=== PATIENT | female | born 1950 | race Caucasian/White ===

== ENCOUNTER 2020-08-16 08:26 | Observation (INO) ==
[~2020-08-16 08:26] MED LIST: Buffered Lidocaine 1% SYRIN 1 ml INTRADERM ONE; Famotidine IV 10 MG/ML 2 ml VIAL (20 mg) IV ONE; Lactated Ringers 1000 ml BAG 1,000 ML IV SCH; Sodium Citrate/Citric Acid LIQ 15 ML UDC PO ONE
[2020-08-16] MEDS ORDERED: Lidocaine 2% PF 5 ML VIAL ONE (09:06)
[2020-08-16] MEDS ORDERED: Propofol 10 MG/ML 20 ML BTL ONE (09:06)
[2020-08-16] MEDS ORDERED: Midazolam 2 mg/2 ml VIAL 1 mg/ml 2 ml VIAL (2 mg) ONE (09:09)
[2020-08-16] MEDS ORDERED: Sodium Citrate/Citric Acid LIQ 15 ML UDC ONE (09:25)
[2020-08-16] MEDS ORDERED: ceFAZolin 2 GM PREMIX 2 GM/50 ML BAG ONE (09:25)
[2020-08-16] MEDS ORDERED: Buffered Lidocaine 1% SYRIN 1 ml INTRADERM ONE (09:26)
[2020-08-16] MEDS ORDERED: Famotidine IV 10 MG/ML 2 ml VIAL (20 mg) ONE (09:26)
[2020-08-16] MEDS ORDERED: Lidocaine 1% MPF 5 ML VIAL ONE (09:52)
[2020-08-16] MEDS ORDERED: ROPIVACAINE 5 MG/ML 30 ML BTL (0.5%) ONE (09:52)
[2020-08-16] MEDS ORDERED: Dexamethasone IV 4 MG/ML VIAL 1 ml VIAL ONE ×2 (09:53→09:54)
[2020-08-16] MEDS ORDERED: Ondansetron 4 mg VIAL 2 MG/ML 2 ml VIAL ONE (09:54)
[2020-08-16] MEDS ORDERED: Midazolam 5 mg/5 ml VIAL 1 mg/ml 5 ml VIAL (5 mg) ONE (09:58)
[2020-08-16] MEDS ORDERED: Bupivacaine 0.5% SDV PF 30ML VIAL ONE (10:56)
[2020-08-16] MEDS ORDERED: EPHEDrine (Pressors) 50 MG/ML VIAL ONE (11:19)
[2020-08-16] MEDS ORDERED: Naloxone 0.4 mg VIAL 0.4 mg/ml 1 ml VIAL IV PRN (11:32)
[2020-08-16] MEDS ORDERED: HYDROmorphone 1 MG/1 ML SYRINGE IV PRN (11:32)
[2020-08-16] MEDS ORDERED: fentaNYL 100 mcg/2 ml 50 MCG/ML VIAL IV PRN (11:32)
[2020-08-16] MEDS ORDERED: Ondansetron 4 mg VIAL 2 MG/ML 2 ml VIAL IV PRN ×2 (11:32→11:47)
[2020-08-16] MEDS ORDERED: Phenylephrine 40 mcg/mL 10mL (400mcg) SYRINGE ONE (11:36)
[2020-08-16] MEDS ORDERED: Ondansetron ODT 4 mg TAB 4 MG TAB PO PRN (11:47)
[2020-08-16] MEDS ORDERED: Lactulose 30 ml UDC PO PRN (11:47)
[2020-08-16] MEDS ORDERED: Magnesium Hydroxide LIQ 30 ML UDC PO PRN (11:47)
[2020-08-16] MEDS ORDERED: diPHENhydraMINE IV 50 MG/ML 1 ml VIAL (BENADRYL) IV PRN (11:47)
[2020-08-16] MEDS ORDERED: diPHENhydraMINE 25 mg TAB PO PRN (11:47)
[2020-08-16] MEDS ORDERED: Morphine 2 MG/ML SYRINGE IV PRN (11:47)
[2020-08-16] MEDS ORDERED: oxyCODONE/Acetamin 5/325 mg TAB PO PRN (11:47)
[2020-08-16] MEDS: Lactated Ringers 1000 ml BAG 1,000 ML IV SCH (14:41)
[2020-08-16] MEDS: ceFAZolin 1 GM ADVAN 1 GM in NS 0.9% 50 ML 50 ML IVPB SCH (19:32)
[2020-08-16] MEDS: Magnesium Hydroxide LIQ 30 ML UDC PO SCH (21:04)
[2020-08-17] MEDS: Lactated Ringers 1000 ml BAG 1,000 ML IV SCH (02:20)
[2020-08-17] MEDS: ceFAZolin 1 GM ADVAN 1 GM in NS 0.9% 50 ML 50 ML IVPB SCH ×2 (03:46→11:00)
[2020-08-17 06:37] LABS: BUN/Creatinine Ratio 24.3 (8-20); Calcium 8.9 mg/dL (8.6-10.3); EGFR African American 100.4 (>60); Potassium 4.4 mmol/L (3.5-5.0)
[2020-08-17 06:42] LABS: Hematocrit 36 % (35-47); Hemoglobin 11.7 g/dL (12.0-16.0); Mean Platelet Volume 10.1 fL (7.4-10.4); Platelet Count 219 10^3/uL (150-450)
[2020-08-17] MEDS: Magnesium Hydroxide LIQ 30 ML UDC PO SCH (08:53)
[2020-08-17] MEDS ORDERED: Vitamin THERAPEUTIC TAB PO SCH (09:00)
[2020-08-17 12:36] VITALS: BP 113/49
== END 2020-08-17 13:33 | disposition home or self-care (01) ==
LOC: SSU 08:26 → OR 08:26
PROVIDERS: ADMIT Orthopaedic Surgery Adult Reconstructive Orthopaedic Surgery; ATTEND Orthopaedic Surgery Adult Reconstructive Orthopaedic Surgery

== ENCOUNTER 2022-06-30 08:28 | Observation (INO) ==
[~2022-06-30 08:28] MED LIST changes: +Dexamethasone IV 4 MG/ML VIAL 1 ml VIAL IV SLOW PU ONE; -Sodium Citrate/Citric Acid LIQ 15 ML UDC PO ONE; +ceFAZolin 2 GM in NS PREMIX 2 GM/100 ML BAG IVPB ONE
[2022-06-30] MEDS ORDERED: Dexamethasone IV 4 MG/ML VIAL 1 ml VIAL ONE (09:12)
[2022-06-30] MEDS ORDERED: Famotidine IV 10 MG/ML 2 ml VIAL (20 mg) ONE (09:13)
[2022-06-30] MEDS ORDERED: Midazolam 2 mg/2 ml VIAL 1 mg/ml 2 ml VIAL (2 mg) ONE ×2 (09:27→09:56)
[2022-06-30] MEDS ORDERED: Propofol 10 MG/ML 20 ML BTL ONE (09:27)
[2022-06-30] MEDS ORDERED: Lidocaine 2% PF 5 ML VIAL ONE (09:27)
[2022-06-30] MEDS ORDERED: fentaNYL 100 mcg/2 ml 50 MCG/ML VIAL ONE ×2 (09:27→09:56)
[2022-06-30] MEDS ORDERED: Ondansetron 4 mg VIAL 2 MG/ML 2 ml VIAL ONE (09:27)
[2022-06-30] MEDS ORDERED: ROPIVACAINE 5 MG/ML 30 ML BTL (0.5%) ONE (09:54)
[2022-06-30] MEDS ORDERED: Prochlorperazine 5 mg/ml 2 ml VIAL (10 mg) IV PRN (10:04)
[2022-06-30] MEDS ORDERED: fentaNYL 100 mcg/2 ml 50 MCG/ML VIAL IV PRN (10:04)
[2022-06-30] MEDS ORDERED: Morphine 4 MG/ML VIAL (1 ml) IV PRN (10:04)
[2022-06-30] MEDS ORDERED: Naloxone 0.4 mg VIAL 0.4 mg/ml 1 ml VIAL IV PRN (10:04)
[2022-06-30] MEDS ORDERED: Ropivacaine 5 MG/ML 20 ML VIAL 0.5% (100 MG) ONE (10:28)
[2022-06-30] MEDS ORDERED: Bupivacaine 0.5% PF 10 ML SDV VIAL INJ ONE (10:37)
[2022-06-30] MEDS ORDERED: Phenylephrine IV 10 MG/ML 1 ml VIAL ONE (11:19)
[2022-06-30] MEDS ORDERED: Sterile Water for Inj 10 ML ONE (11:25)
[2022-06-30] MEDS ORDERED: Ondansetron ODT 4 mg TAB 4 MG TAB PO PRN (13:34)
[2022-06-30] MEDS ORDERED: Magnesium Hydroxide LIQ 30 ML UDC PO PRN (13:34)
[2022-06-30] MEDS ORDERED: Ondansetron 4 mg VIAL 2 MG/ML 2 ml VIAL IV PRN (13:34)
[2022-06-30] MEDS ORDERED: Lactulose 30 ml UDC PO PRN (13:34)
[2022-06-30] MEDS ORDERED: Morphine 2 MG/ML SYRINGE IV PRN (13:34)
[2022-06-30] MEDS: Lactated Ringers 1000 ml BAG 1,000 ML IV SCH (15:52)
[2022-06-30] MEDS: ceFAZolin 1 GM ADVAN 1 GM in NS 0.9% 50 ML 50 ML IVPB SCH (19:40)
[2022-06-30] MEDS: Magnesium Hydroxide LIQ 30 ML UDC PO SCH (21:57)
[2022-07-01] MEDS: Lactated Ringers 1000 ml BAG 1,000 ML IV SCH (02:26)
[2022-07-01] MEDS: ceFAZolin 1 GM ADVAN 1 GM in NS 0.9% 50 ML 50 ML IVPB SCH ×2 (04:46→11:48)
[2022-07-01 05:05] LABS: Hematocrit 36 % (35-47); Hemoglobin 11.5 g/dL (12.0-16.0); Mean Platelet Volume 9.3 fL (7.4-10.4); Platelet Count 246 10^3/uL (150-450)
[2022-07-01 05:53] LABS: Calcium 8.9 mg/dL (8.6-10.3); Potassium 4.4 mmol/L (3.5-5.0); eGFR CKD-EPI 89.3 (>60)
[2022-07-01] MEDS ORDERED: Vitamin THERAPEUTIC TAB PO SCH (09:00)
[2022-07-01] MEDS: Magnesium Hydroxide LIQ 30 ML UDC PO SCH (09:11)
[2022-07-01 13:37] VITALS: BP 112/67
== END 2022-07-01 15:35 | disposition home or self-care (01) ==
LOC: OR 08:28 → SSU 08:28 → EDSTATUS 10:30
PROVIDERS: ADMIT Orthopaedic Surgery Adult Reconstructive Orthopaedic Surgery; ATTEND Orthopaedic Surgery Adult Reconstructive Orthopaedic Surgery